=== PATIENT | male | born 1950 ===

== ENCOUNTER 2018-10-28 10:29 | Emergency (ER) | payer MEDICARE ==
[~2018-10-28] VITALS: Ht 185.4 cm; Wt 134.1 kg
[2018-10-28] MEDS ORDERED: ASPI81 PO (10:41)
[2018-10-28] MEDS ORDERED: PERTUSS(ACELL),DIPH,TET VAC/PF 0.5 ML VIAL IM ONE (11:15)
[2018-10-28 11:39] VITALS: BP 160/59
== END 2018-10-28 12:07 | disposition home or self-care (01) ==
LOC: EMS 10:32
DX: S61.031A Puncture wound without foreign body of right thumb without damage to nail, initial encounter (principal); W26.8XXA Contact with other sharp object(s), not elsewhere classified, initial encounter; Y93.89 Activity, other specified; Y92.89 Other specified places as the place of occurrence of the external cause; Y99.8 Other external cause status
CPT/HCPCS: 90471; 90715